=== PATIENT | female | born 1970 | race Hispanic/Latino ===

== ENCOUNTER 2017-07-23 11:15 | Day surgery (SDC) | payer MEDICARE ==
[2017-07-23] MEDS: NACL 0.9% 1000 ML 1,000 ML IV SCH ×2 (13:30→15:52)
--- NOTE | 2017-07-23 15:48 | Anesthesia Day of Surgery ---
Anesthesia Day of Surgery - Day of Surgery Patient Examined: Yes Patient H&P Reviewed: Yes Patient is NPO: Yes
--- NOTE | 2017-07-23 15:48 | Anesthesia Consultation ---
Anesthesia Consult and Med Hx Date of service: 07/23/17 - Airway Anesthetic Teeth Evaluation: Good ROM Head & Neck: Adequate Mental/Hyoid Distance: Adequate Mallampati Class: Class II Intubation Access Assessment: Probably Good - Pulmonary Exam CTA: Yes - Cardiac Exam Cardiac Exam: RRR - Pre-Operative Health Status ASA Pre-Surgery Classification: ASA3 Proposed Anesthetic Plan: MAC - Pulmonary Hx Asthma: Yes - Other Systems Hx Obesity: Yes
[2017-07-23] MEDS ORDERED: DIPRIVAN 10 MG/ML IV ONE (16:02)
[2017-07-23] MEDS ORDERED: HURRICAINE ONE 20% TOPICAL SPRAY MM (16:02)
[2017-07-23 17:46] VITALS: BP 140/80
[2017-07-23] MEDS ORDERED: HURRICAINE ONE 20% TOPICAL SPRAY MM NR (21:00)
== END 2017-07-23 11:16 | disposition home or self-care (01) ==
LOC: GIO 11:15
PROVIDERS: ATTEND Specialist
DX: K44.9 Diaphragmatic hernia without obstruction or gangrene (principal); K58.9 Irritable bowel syndrome, unspecified; J45.909 Unspecified asthma, uncomplicated; G43.909 Migraine, unspecified, not intractable, without status migrainosus; E66.01 Morbid (severe) obesity due to excess calories; F32.9 Major depressive disorder, single episode, unspecified; Z68.43 Body mass index [BMI] 50.0-59.9, adult; Z88.5 Allergy status to narcotic agent; Z88.8 Allergy status to other drugs, medicaments and biological substances; Z91.018 Allergy to other foods; Z79.899 Other long term (current) drug therapy
CPT/HCPCS: 43235; 82962; J2704; J7030